=== PATIENT | female | born 1945 | race Two or more races ===

== ENCOUNTER 2020-11-03 07:45 | Day surgery (SDC) | payer OTHER ==
[2020-11-01 16:03] VITALS: BMI 23.3
[~2020-11-03 07:45] MED LIST: LIDOCAINE HCL 1%, 10 MG/ML (20ML VIAL) SQ ONE
[2020-11-03] MEDS ORDERED: LIDOCAINE HCL 1%, 10 MG/ML (20ML VIAL) ONE (10:11)
[2020-11-03] MEDS ORDERED: PROPOFOL 20 ML ONE (10:38)
[2020-11-03] MEDS ORDERED: MIDAZOLAM HCL 2 MG/2 ML SINGLE DOSE VIAL ONE (10:38)
[2020-11-03] MEDS ORDERED: ONDANSETRON 4 MG/2 ML VIAL ONE (10:45)
[2020-11-03] MEDS ORDERED: DEXAMETHASONE SOD PHOSPHATE 4 MG/1 ML VIAL ONE (10:45)
[2020-11-03] MEDS ORDERED: ceFAZolin SODIUM 1 GM VIAL ONE (10:46)
[2020-11-03] MEDS ORDERED: LIDOCAINE HCL 1%, 10 MG/ML (20ML VIAL) SQ ONE (10:56)
[2020-11-03 11:28] VITALS: TEMP 96.9
[2020-11-03 12:11] VITALS: BP 119/74; PULSE 76
== END 2020-11-03 12:25 | disposition home or self-care (01) ==
LOC: FASU 07:45
PROVIDERS: ATTEND Orthopaedic Surgery
PROC: 0JNR3ZZ Release Left Foot Subcutaneous Tissue and Fascia, Percutaneous Approach (ICD-10-PCS; principal; 2020-11-03 09:30)
DX: M72.2 Plantar fascial fibromatosis (principal)